=== PATIENT | male | born 1955 | race Caucasian/White ===

== ENCOUNTER 2019-12-08 07:06 | Outpatient (CLI) | payer OTHER, SELFPAY ==
--- NOTE | 2019-12-08 07:15 | USCV_ITS ---
AdelsoAidan amin Age: 64 Gender: M : 1955 Exam Date: 12/08/2019 07:21 Ordering Phys: Akua Shelby Technologist: Echo Mujica Exam Location: [facility] Indication: AAA HISTORY: AAA seen on xray Diameter (cm) AP x Transverse x Length Velocity (cm/s) Waveform Prox Aorta: 2.30 x 3.06 x 64.50 Mid Aorta: 2.55 x 3.01 x 52.90 Distal Aorta: 1.90 x 2.21 x 55.40 Right Iliac Prox: 1.17 x 1.23 x 79.30 Left Iliac Prox: 1.70 x 1.49 x 38.80 Stent Prox Landing x x Aneurysmal Sac Max x x Lt Lat Sac Dim Rt Lat Sac Dim Stent Dist Landing x x Right Iliac Stent x x Left Iliac Stent x x Right Renal Art Left Renal Art FINDINGS: Comparison: none available. Ectatic abdominal aorta with evidence of atherosclerotic plaque noted. Mild aneurysmal dilatation of the infrarenal aorta, maximum diameter of 3.0 cm. There is evidence of atherosclerotic plaque no significan stenosis in the right common iliac artery. There is evidence of atherosclerotic plaque no significan stenosis in the left common iliac artery. CONCLUSIONS Mimimal AAA at 3.[address] Lacey Najera DO (Electronically Signed) Final Date: 09 December 2019 08:43 S
== END 2019-12-08 07:07 | disposition home or self-care (01) ==
LOC: US 07:08
PROVIDERS: Visit Provider Nurse Practitioner
DX: I71.4 Abdominal aortic aneurysm, without rupture (principal)
CPT/HCPCS: 93978

== ENCOUNTER 2021-11-07 13:12 | Inpatient (IN) | payer OTHER, MEDICARE, SELFPAY ==
[2021-11-07] VITALS (45 sets, daily range): BP systolic 109–145; BP diastolic 64–87; PULSE 65–92; RESP 13–25; TEMP 36.6–36.9; O2SAT 93–100; BMI 24.3
--- NOTE | 2021-11-07 13:17 | CT_ITS ---
WS: [id number] CT CERVICAL TRAUMA TECHNIQUE: Noncontrast CT of the cervical spine with coronal and sagittal reformatted images. CLINICAL INFORMATION: trauma COMPARISON: None. DLP: 628.[address] scans at [facility] use at least one of these dose optimization techniques: automated e xposure control; mA and/or kV adjustment per patient size (includes targeted exams where dose is matc hed to clinical indication); or iterative reconstruction. FINDINGS: Straightening of the normal cervical lordosis. Moderate spondylitic changes. Disc osteophyte complexe s worse at C4-C5 C5-C6 and C6-C7. Anterior hypertrophic changes. Mild central canal stenosis C4-C6 du e to disc osteophyte complexes. Normal craniocervical junction. Normal C1-C2 articulation. Dens is no rmal in appearance. Normal occipital condyles. No high-grade spinal canal narrowing. Normal C1 ring. No evidence of acute fracture or dislocation. Normal prevertebral soft tissues. Mastoids air cells are well aerated. CT/CT cervical spin wo con* [id number] IMPRESSION: No evidence of acute fracture or dislocation.
--- NOTE | 2021-11-07 13:17 | CT_ITS ---
WS: [id number] CT CHEST, ABDOMEN, AND PELVIS TECHNIQUE: Contrast-enhanced CT of the chest, abdomen, and pelvis with coronal and sagittal reformatt ed images. CLINICAL INFORMATION: trauma COMPARISON: None. DLP: 1331.[address] scans at [facility] use at least one of these dose optimization techniques: automated e xposure control; mA and/or kV adjustment per patient size (includes targeted exams where dose is matc hed to clinical indication); or iterative reconstruction. CT CHEST: Small RIGHT pleural effusion with pulmonary contusion. Adjacent slightly displaced and comminuted imp inging rib fractures. This involves the 5th 6th 7th 8th 9th ribs laterally. No visualized left-sided rib fractures. Subcutaneous emphysema RIGHT lateral chest wall. No pneumothorax. Additional fractures at the costovertebral junction involving the 7th, 8th, 9th, 10th ribs. Spiculated lesion RIGHT upper lobe posteriorly extending to the pleura suspicious for neoplasm measur ing 11 x 12 mm. Recommend pulmonary consultation and further evaluation with PET/CT. Calcified granul erika LEFT upper lobe. LEFT basilar atelectasis. Normal caliber thoracic aorta. Proximal main pulmonary arteries are normal. No evidence of mediastinal hematoma. CT ABDOMEN AND PELVIS: Normal liver. No evidence of pancreatic laceration. Small enhancing lesion in the dome of the liver l ikely cavernous hemangioma. Normal portal vein and splenic vein. Normal spleen. Normal GE junction. A drenal glands are normal. Normal renal parenchymal enhancement. No hydronephrosis. Normal gallbladder . Normal celiac and SMA. Slightly ectatic distal abdominal aorta measuring 2.2 x 2.5 CCM. Bilateral THAs degrade images in the pelvis. Urine distended bladder. Fluid-filled small bowel. No ev idence of solid organ injury in the abdomen or pelvis. No free fluid in the pelvis. No acute appearin g compression fractures of the lumbar spine. CT/CT chest abd pel w con* IMPRESSION: 1. Multiple RIGHT rib fractures with impingement on the RIGHT lung with pulmon morenita contusion. Small RIGHT pleural effusion. No pneumothorax. Rib fractures moody cribed above. 2. No evidence of solid organ injury in the abdomen or pelvis. 3. Spiculated lesion in the RIGHT upper lobe posteriorly suspicious for neopla sm measuring 11 x 12 mm. Recommend pulmonary consult and further evaluation wit h PET/CT. Notified Giancarlo Coon DO at 11/07/2021 2:36 PM.
--- NOTE | 2021-11-07 13:18 | XRR_ITS ---
PROCEDURE INFORMATION: Exam: XR Right Humerus Exam date and time: 11/07/2021 1:18 PM Age: 66 years old Clinical indication: Injury or trauma; Other: Tree fell on patient; Blunt trauma (contusions or hematomas); Arm, upper; Bilateral TECHNIQUE: Imaging protocol: XR Right humerus. Views: 2 or more views. COMPARISON: CR XR chest 1V portable [id number] 11/07/2021 1:28 PM FINDINGS: Bones/joints: Normal. Soft tissues: Normal. XR/[place] [id number] IMPRESSION: No acute findings.
--- NOTE | 2021-11-07 13:18 | XRR_ITS ---
PROCEDURE INFORMATION: Exam: XR Left Humerus Exam date and time: 11/07/2021 1:18 PM Age: 66 years old Clinical indication: Injury or trauma; Other: Tree fell on patient; Blunt trauma (contusions or hematomas); Arm, upper; Bilateral TECHNIQUE: Imaging protocol: XR Left humerus. Views: 2 or more views. COMPARISON: CR XR chest 1V portable [id number] 11/07/2021 1:28 PM FINDINGS: Bones/joints: Negative for acute bony abnormality Soft tissues: Normal. XR/[place] [id number] IMPRESSION: No acute findings.
--- NOTE | 2021-11-07 13:18 | CT_ITS ---
WS: [id number] CT HEAD TECHNIQUE: Noncontrast CT of the head obtained from the skullbase to the vertex. CLINICAL INFORMATION: trauma COMPARISON: None. DLP: 928.[address] scans at [facility] use at least one of these dose optimization techniques: automated e xposure control; mA and/or kV adjustment per patient size (includes targeted exams where dose is matc hed to clinical indication); or iterative reconstruction. FINDINGS: No evidence of intracranial hemorrhage or mass effect. Ventricular system and basal cisterns are garcia nt. Mild small vessel changes with mild parenchymal volume loss. Intracranial vascular calcification. No extra-axial fluid collections. No evidence of mass or mass effect. Normal maya-white differentiat ion. Paranasal sinuses and mastoid air cells are well aerated. .Normal visualized soft tissues. CT/CT head wo con* [id number] IMPRESSION: 1. No evidence of intracranial hemorrhage or mass effect. 2. Mild small vessel changes. Mild parenchymal volume loss. 3. No acute intracranial findings.
--- NOTE | 2021-11-07 13:19 | ECG_ITS ---
[facility] Test Date: 2021-11-07 Pat Name: Aidan Darden Department: Room: Gender: Male Relationship Associate: : 1955 Requested By: Giancarlo Ching Order Number: [id number] Pilar MD: Kathie Cobos M.D. Measurements Intervals [place] Rate: 69 P: 69 NV: 186 QRS: 32 QRSD: 111 T: 63 QT: 385 QTc: 415 Interpretive Statements SINUS RHYTHM WITH MARKED SINUS ARRHYTHMIA INCOMPLETE RIGHT BUNDLE BRANCH BLOCK [90+ ms QRS DURATION, TERMINAL R IN V1/V2, 40+ ms S IN I/aVL/V4/V5/V6] No previous ECG available for comparison Electronically Signed On 11-08-2021 5:37:23 [employer] by Kathie Cobos M.D. [id number]
--- NOTE | 2021-11-07 13:19 | XRR_ITS ---
PROCEDURE INFORMATION: Exam: XR Chest Exam date and time: 11/07/2021 1:19 PM Age: 66 years old Clinical indication: Cough and dyspnea; Additional info: Dyspnea/cough TECHNIQUE: Imaging protocol: XR of the chest. Views: 1 view. COMPARISON: No relevant prior studies available. FINDINGS: Lungs: Unremarkable. No consolidation. Pleural spaces: Unremarkable. No pleural effusion. No pneumothorax. Heart/Mediastinum: Unremarkable. No cardiomegaly. Bones/joints: There is healing fractures present in the right 5th and 6 posterior rib XR/XR chest 1V portable [id number] IMPRESSION: 1. No acute cardiac or pulmonary disease. 2. Healing fractures right 5th and 6th rib
--- NOTE | 2021-11-07 13:20 | ED_ITS ---
HPI - Trauma General: Chief Complaint: Trauma Stated Complaint: TRAUMA, TREE FELL ON PT Time Seen by Provider: 11/07/21 13:13 Source: patient Mode of arrival: EMS Limitations: no limitations History of Present Illness: 66-year-old male presents emergency room after trauma while cutting down a tree. He cut a large limb off of the tree as it came down and pinned him against the tree was able to get himself out he has abrasions bilaterally on the lateral aspects of his arms and some abrasion on the right side of the chest he has some discomfort with breathing but is not been hypoxic he did not strike his head he did not lose consciousness. MD complaint: injury Onset (ago): minute(s) Loss of Consciousness: no Location: chest Associated symptoms: Reports back pain and chest pain; Denies Unable to assess gait, abdominal pain, anorexia, chills, confusion, cough, dental pain, diaphoresis, difficulty breathing, dizziness, epistaxis, fever(s), headache(s), nausea, seizures, short of breath, syncope, visual disturbances, vomiting or weakness Review of Systems Const: Denies: fever(s), chills or diaphoresis ENMT: Denies: dental pain or epistaxis Card: Reports: chest pain; Denies: syncope Resp: Denies: dyspnea, productive cough or non-productive cough GI: Denies: abdominal pain, nausea or vomiting : Denies: flank pain, dysuria, urinary frequency or urinary urgency Musc: Reports: back pain Skin/Breast: Denies: rash or pruritus Neuro: Denies: headache(s), dizziness or confusion PFS ED PFSH: Medical History No significant past medical history Surgical History No significant past surgical history Physical Exam Const: GENERAL APPEARANCE: cooperative and comfortable ORIENTATION/CONSCIOUSNESS: Yes awake, Yes oriented to person, Yes oriented to place and Yes oriented to time HENMT: COMMON NORMALS: normocephalic, atraumatic, hearing grossly normal bilaterally, external ears normal, EAC's normal, TM's normal bilaterally, Normal nasal mucous membranes and turbinates present, moist oral mucous membranes and oropharynx normal HEAD & SCALP: normocephalic and atraumatic NOSE: Normal nasal mucous membranes and turbinates present EXTERNAL EAR: Yes external ears normal EXTERNAL AUDITORY CANAL: EAC's normal TYMPANIC MEMBRANE: TM's normal bilaterally Eye: COMMON NORMALS: Equal, round and reactive pupils present, EOMs intact bilaterally, conjunctivae normal and no scleral icterus CONJUNCTIVA: Yes conjunctivae normal PUPIL: Yes Equal, round and reactive pupils present Neck/C-Spine: COMMON NORMALS: full ROM, no lymphadenopathy, supple and no JVD Lymph: LYMPHATIC: no lymphadenopathy noted and no lymphedema noted Chest: OTHER: Pain with palpation of the right chest wall Resp: COMMON NORMALS: normal respiratory effort, No retractions, No use of accessory muscles and clear to auscultation bilaterally AUSCULTATION: clear to auscultation bilaterally Cardio: COMMON NORMALS: no JVD, regular rate, regular rhythm and No murmurs present (Cardio) RATE: regular rate RHYTHM: regular rhythm GI: COMMON NORMALS: Soft to palpation and No hepatosplenomegaly present AUSCULTATION: Yes normoactive bowel sounds PALPATION: Yes Soft to palpation, No Tenderness to palpation present (GI), No Guarding due to palpation present (GI) and Yes No hepatosplenomegaly present Extremity: COMMON NORMALS: normal to inspection, capillary refill normal, no clubbing, cyanosis or edema, no calf tenderness and no pedal edema Neuro: SENSORIUM/ORIENTATION: Yes oriented to person, Yes oriented to place and Yes oriented to time GAIT: No Unable to assess gait Skin: OTHER: Skin tears bilateral and lateral aspects of the arms. No full-thickness laceration no active bleeding Course Vital Signs: Vital signs: Vital Signs Temperature 97.5 F L 11/09/21 11:00 Pulse Rate 68 11/09/21 11:00 Respiratory Rate 18 11/09/21 12:01 Blood Pressure 138/77 11/09/21 11:00 Pulse Oximetry 92 11/09/21 11:00 MDM - Trauma Medical Decision Making Patient has multiple rib fractures but no pneumothorax small hemothorax there is some subcutaneous air. No other injuries found on imaging I discussed Dr. Ardon he is willing to observe the patient we will place him in the ICU anesthesia was consulted for an epidural to really help relieve pain. Discussed results with the patient orders written Medical Records I reviewed the patient's medical records. Lab Data I reviewed the patient's lab results. : 11/08/21 04:07 11/08/21 04:07 Radiology Impressions Cervical Spine CT 11/07/21 13:17 IMPRESSION: No evidence of acute fracture or dislocation. Chest/Abdomen/Pelvis CT 11/07/21 13:17 IMPRESSION: 1. Multiple RIGHT rib fractures with impingement on the RIGHT lung with pulmonary contusion. Small RIGHT pleural effusion. No pneumothorax. Rib fractures described above. 2. No evidence of solid organ injury in the abdomen or pelvis. 3. Spiculated lesion in the RIGHT upper lobe posteriorly suspicious for neoplasm measuring 11 x 12 mm. Recommend pulmonary consult and further evaluation with PET/CT. Notified Giancarlo Coon DO at 11/07/2021 2:[address] 11/07/21 13:18 IMPRESSION: 1. No evidence of intracranial hemorrhage or mass effect. 2. Mild small vessel changes. Mild parenchymal volume loss. 3. No acute intracranial findings. Humerus X-Ray 11/07/21 13:18 IMPRESSION: No acute findings. Hip/Pelvis X-Ray 11/07/21 13:36 IMPRESSION: 1. Metallic left hip arthroplasty in good position. 2. Otherwise No acute findings. Chest X-Ray 11/09/21 06:00 Impression: 1. Negative for active cardiopulmonary disease. 2. No change in right rib fractures. Laboratory Results WBC 5.4 10^3/uL (4.0-10.0) 11/07/21 13:00 RBC 4.23 10^6/uL (4.1-5.3) 11/07/21 13:00 Hgb 12.9 g/dL (11.7-16.6) 11/07/21 13:00 Hct 40.4 % (42.0-52.0) L 11/07/21 13:00 MCV 95.5 fl (80-94) H 11/07/21 13:00 MCH 30.5 pg (28.0-34.0) 11/07/21 13:00 MCHC 31.9 g/dL (30.0-36.0) 11/07/21 13:00 RDW 13.9 % (12.1-15.1) 11/07/21 13:00 Plt Count 254 10^3/cmm (130-400) 11/07/21 13:00 MPV 11.2 fL (7.4-10.4) H 11/07/21 13:00 Neut % (Auto) 57.0 % 11/07/21 13:00 Lymph % (Auto) 29.3 % 11/07/21 13:00 Logan % (Auto) 8.1 % 11/07/21 13:00 Eos % (Auto) 0.6 % 11/07/21 13:00 Baso % (Auto) 1.1 % 11/07/21 13:00 Neut # (Auto) 3.08 10^3/uL (1.8-7.7) 11/07/21 13:00 Lymph # (Auto) 1.6 10^3/uL (0.8-4.8) 11/07/21 13:00 Logan # (Auto) 0.4 10^3/uL (0.2-0.9) 11/07/21 13:00 Eos # (Auto) 0.0 10^3/uL (0.0-0.8) 11/07/21 13:00 Baso # (Auto) 0.1 10^3/uL (0.0-0.1) 11/07/21 13:00 Nucleated RBC % (auto) 0.4 % 11/07/21 13:00 Nucleated RBCs # 0.0 /100WBC 11/07/21 13:00 Sodium 140 mmol/L (136-145) 11/07/21 13:00 Potassium 3.5 mmol/L (3.5-5.1) 11/07/21 13:00 Chloride 103 mmol/L (98-107) 11/07/21 13:00 Carbon Dioxide 25 mmol/L (22-29) 11/07/21 13:00 Anion Gap 15.5 (5-19) 11/07/21 13:00 BUN 9 mg/dL (8-23) 11/07/21 13:00 Creatinine 0.8 mg/dL (0.7-1.2) 11/07/21 13:00 GFR Calculation 97.0 mL/min (90-130) 11/07/21 13:00 Glucose 98 mg/dL (65-115) 11/07/21 13:00 Calculated Osmolality 289 mOsm/kg (285-295) 11/07/21 13:00 Calcium 8.7 mg/dL (8.5-10.5) 11/07/21 13:00 Total Bilirubin 0.7 mg/dL (0.15-1.2) 11/07/21 13:00 AST 30 U/L (0-40) 11/07/21 13:00 ALT 23 U/L (0-41) 11/07/21 13:00 Alkaline Phosphatase 72 IU/L (40-130) 11/07/21 13:00 Total Protein 6.3 g/dL (6.6-8.7) L 11/07/21 13:00 Albumin 4.1 g/dL (3.5-5.2) 11/07/21 13:00 Globulin 2.2 g/dL (1.3-4.6) 11/07/21 13:00 Urine Color Straw (Yellow) 11/07/21 15:00 Urine Appearance Clear (CLEAR) 11/07/21 15:00 Urine pH 9 (5-7) H 11/07/21 15:00 Ur Specific [place] 1.015 (1.005-1.030) 11/07/21 15:00 Urine Protein Neg (Negative) 11/07/21 15:00 Urine Glucose (UA) Norm (Normal) 11/07/21 15:00 Urine Ketones Negative (Negative) 11/07/21 15:00 Urine Blood Neg (Negative) 11/07/21 15:00 Urine Nitrate Negative (Negative) 11/07/21 15:00 Urine Bilirubin Neg (Negative) 11/07/21 15:00 Prot Sulfosalicylic Acd Negative (Negative) 11/07/21 15:00 Urine Urobilinogen Norm mg/dL (Negative) 11/07/21 15:00 Ur Leukocyte Esterase Negative (Negative) 11/07/21 15:00 Urine Opiates Screen Negative ng/mL (Negative) 11/07/21 15:00 Ur Barbiturates Screen Negative ng/mL (Negative) 11/07/21 15:00 Ur Phencyclidine Scrn Negative ng/mL (Negative) 11/07/21 15:00 Ur Amphetamines Screen Negative ng/mL (Negative) 11/07/21 15:00 U Benzodiazepines Scrn Negative ng/mL (Negative) 11/07/21 15:00 Urine Cocaine Screen Negative ng/mL (Negative) 11/07/21 15:00 U Marijuana (THC) Screen Negative ng/mL (Negative) 11/07/21 15:00 Discharge Plan Discharge Patient Disposition: Admitted As Inpatient Admit Provider: Vamsi Ardon Clinical Impression: Multiple rib fractures involving four or more ribs Condition: Stable Coding Level of Care Code ED [employer] 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
[2021-11-07 13:31] LABS: Basophils # 0.1 10^3/uL (0.0-0.1); Basophils % 1.1 %; Eosinophils % 0.6 %; Hematocrit 40.4 % (42.0-52.0); Hemoglobin 12.9 g/dL (11.7-16.6); Lymphocytes # 1.6 10^3/uL (0.8-4.8); Lymphocytes % 29.3 %; Mean Corpuscular HGB Conc 31.9 g/dL (30.0-36.0); Mean Corpuscular Hemoglobin 30.5 pg (28.0-34.0); Mean Corpuscular Volume 95.5 fl (80-94); Mean Platelet Volume 11.2 fL (7.4-10.4); Monocytes # 0.4 10^3/uL (0.2-0.9); Monocytes % 8.1 %; Neutrophils # 3.08 10^3/uL (1.8-7.7); Nucleated Red Blood Cells % 0.4 %; Platelet Count 254 10^3/cmm (130-400); Red Blood Count 4.23 10^6/uL (4.1-5.3); Red Cell Distribution Width 13.9 % (12.1-15.1); White Blood Count 5.4 10^3/uL (4.0-10.0)
--- NOTE | 2021-11-07 13:36 | XRR_ITS ---
PROCEDURE INFORMATION: Exam: XR Left Hip Exam date and time: 11/07/2021 1:36 PM Age: 66 years old Clinical indication: Injury or trauma; Other: Tree fell on patient; Blunt trauma (contusions or hematomas); Left; Prior surgery; Surgery type: Hip replacement TECHNIQUE: Imaging protocol: XR Left hip. Views: 2 or 3 views hip with pelvis when performed. COMPARISON: No relevant prior studies available. FINDINGS: Bones/joints: The left metallic left hip arthroplasty is present in good position. No acute fracture. Soft tissues: Unremarkable. XR/XR hip LT 2-3V wo/w pel* [id number] IMPRESSION: 1. Metallic left hip arthroplasty in good position. 2. Otherwise No acute findings.
[2021-11-07 13:55] LABS: Alanine Aminotransferase 23 U/L (0-41); Albumin Level 4.1 g/dL (3.5-5.2); Alkaline Phosphatase 72 IU/L (40-130); Aspartate Amino Transferase 30 U/L (0-40); Blood Urea Nitrogen 9 mg/dL (8-23); Calcium 8.7 mg/dL (8.5-10.5); Carbon Dioxide 25 mmol/L (22-29); Chloride 103 mmol/L (98-107); Creatinine Clr Calc Pharmacy 94.2151; Globulin 2.2 g/dL (1.3-4.6); Glucose 98 mg/dL (65-115); Osmolality Calculated 289 mOsm/kg (285-295); Sodium 140 mmol/L (136-145); Total Bilirubin 0.7 mg/dL (0.15-1.2); Total Protein 6.3 g/dL (6.6-8.7)
[2021-11-07 13:59] LABS: Anion Gap 15.5 (5-19); Potassium 3.5 mmol/L (3.5-5.1)
[2021-11-07] MEDS: iohexol 300 mg/mL 100 mL Btl IV (14:16)
[2021-11-07 15:08] LABS: Add Urine Microscopic? NO; Charge for UA Resulting for Rev
[2021-11-07 15:11] LABS: Bilirubin Urine Neg (Negative); Blood Urine Neg (Negative); Glucose Urine UA Norm (Normal); Ketones Urine Negative (Negative); Leukocyte Esterase Urine Negative (Negative); Nitrate Urine Negative (Negative); Protein Urine Neg (Negative); Specific Gravity, Urine 1.015 (1.005-1.030); Sulfosalicylic Acid Urine Negative (Negative); Urine Appearance Clear (CLEAR); Urine Color Straw (Yellow); Urobilinogen Urine Norm (Negative); pH Urine 9 (5-7)
[2021-11-07 15:19] LABS: Amphetamines Screen Urine Negative (Negative); Barbiturates Screen Urine Negative (Negative); Benzodiazepines Screen Urine Negative (Negative); Cocaine Screen Urine Negative (Negative); Opiate Screen Urine Negative (Negative); PCP Screen Urine Negative (Negative); THC Screen Urine Negative (Negative)
--- NOTE | 2021-11-07 16:23 | P.HP_ITS ---
Providers/Chief Complaint Admitting Physician: Dr. Ardon Chief Complaint: TRAUMA, TREE FELL ON PT History of Present Illness Aidan Darden is a 66 year old male who presented to the emergency department earlier this afternoon after being struck by a tree during trimming. Apparently, a large branch from a [place] pair broke and struck Mr. Darden in the chest and threw him into a large limb that was on the ground. Immediately noted substantial shortness of breath, difficulty breathing, and pain on the right side. He simply presented to the emergency department where chest x-ray reveals posterior rib fractures on the right from ribs 5 through 9 and mild thickening of the pleura on that side. There is no donnell pneumothorax. There is an incidental finding of a 5 mm spiculated lesion in the apex of the right upper lobe which is highly suspicious radiographically for malignancy. Mr. Darden has had stable vital signs while the emergency department. I have reviewed the CT scan which was performed and I have conferred with my colleague, Dr. Owens by phone. He is in moderate discomfort as expected. I have conferred with my colleague from anesthesia, Dr. Sanchez. She has been gracious enough to place a thoracic epidural catheter to help with acute pain control while we continue aggressive pulmonary toilet in an attempt to prevent secondary complications from multiple traumatic rib fractures on the right side. Given the acute nature of the injury and the fact that he was thrown several feet when being struck by the tree, we are going to place him in the ICU and empirically overnight for close observation. Review of Systems Const: Denies: fever(s), chills, change in appetite, change in weight, fatigue or night sweats Eyes: Denies: change in vision or blurry vision ENMT: Denies: odynophagia or hoarseness Card: Denies: chest pain, palpitations, irregular heart rhythm or edema Resp: Reports: dyspnea; Denies: productive cough or hemoptysis GI: Denies: abdominal pain, nausea, vomiting, dysphagia, heartburn or change in bowel habits : Denies: difficulty urinating, dysuria, urinary frequency, urinary urgency or urinary hesitancy Musc: Reports: back pain; Denies: extremity pain or extremity swelling Skin/Breast: Denies: rash Neuro: Denies: headache(s), numbness in extremities, weakness in extremities or sensory changes Psych: Denies: anxiety, depression or change in appetite Endo: Denies: polyuria, polydipsia or cold intolerance John/Lymph: Denies: easy bruising, easy bleeding, petechiae or enlarged lymph nodes Medications/Allergies Home Medications Medication Instructions Recorded Confirmed Last Taken Type No Known Home Medications 11/07/21 11/07/21 Unknown History Allergies Allergy/AdvReac Type Severity Reaction Status Date / Time No Known Allergies Allergy Unverified 11/07/21 15:49 PFSH Acute PFSH: Medical History No significant past medical history Surgical History No significant past surgical history Vitals/I&O/Wt Last Vital Signs Temp 98.3 F 11/07/21 13:20 Pulse 71 11/07/21 16:10 Resp 25 H 11/07/21 16:10 BP 133/75 11/07/21 16:10 Pulse Ox 93 11/07/21 16:10 Weight last 48 hrs Weight 165 lb Physical Exam Const: COMMON NORMALS: no acute distress, patient oriented x3, healthy appearing and well nourished GENERAL APPEARANCE: cooperative and well developed; not comfortable ORIENTATION/CONSCIOUSNESS: Yes awake, Yes oriented to person, Yes oriented to place and Yes oriented to time HENMT: COMMON NORMALS: normocephalic, atraumatic, hearing grossly normal bilaterally and external ears normal FACE & SINUS: normal facial exam NOSE: Normal external nose present GENERAL EAR: hearing grossly impaired Eye: COMMON NORMALS: Equal, round and reactive pupils present, EOMs intact bilaterally, conjunctivae normal and no scleral icterus GENERAL EYE: appearance normal, both eyes and all related structures PUPIL: Yes Equal, round and reactive pupils present Neck/C-Spine: COMMON NORMALS: full ROM, no lymphadenopathy, supple and No carotid bruits GENERAL: Yes normal visual inspection, Yes trachea midline, No anterior neck swelling and No lymphadenopathy CERVICAL SPINE: Yes cervical ROM normal Lymph: LYMPHATIC: no lymphadenopathy noted Chest: COMMONS NORMALS: negative for normal inspection of the chest (Contusion and superficial abrasions) CHEST: Yes localized rib tenderness with anteroposterior compression (Right upper and mid lateral side ) and No Sternal flail present Resp: COMMON NORMALS: normal respiratory effort, No use of accessory muscles and clear to auscultation bilaterally EFFORT & INSPECTION: Yes able to speak in complete sentences, Yes symmetric chest movement and Yes other (No crepitance) AUSCULTATION: clear to auscultation bilaterally, normal I/E ratio, no crackles and breath sounds present Cardio: COMMON NORMALS: regular rate, regular rhythm, S1 normal heart sound present, No murmurs present (Cardio) and No rub (Cardio) PALPATION: normal PMI RATE: regular rate RHYTHM: regular rhythm HEART SOUNDS: S1 normal heart sound present, no murmurs and no rubs BRUITS: no carotid bruits PERIPHERAL PULSES: radial pulses present positive bilateral 2+ GI: COMMON NORMALS: Normal to inspection, nondistended, normoactive bowel sounds present : COMMON NORMALS: Yes no CVA tenderness Back/Pelvis: COMMON NORMALS: no CVA tenderness Extremity: COMMON NORMALS: no clubbing, cyanosis or edema Neuro: COMMON NORMALS: patient oriented x3, moves all extremities, no focal motor deficits and no sensory deficits noted Psych: COMMON NORMALS: mental status grossly normal Skin: GENERAL SKIN EXAM: rashes and/or lesions noted (Abrasions to upper extremities and chest wall) Data : 11/07/21 13:00 11/07/21 13:00 A&P Assessment and plan (1) Multiple rib fractures involving four or more ribs: Multiple right-sided traumatic rib fractures after being struck by a tree. Rib involvement includes posterior ribs 5 through 9. No pneumothorax or substantial pleural effusion. Plan: We will admit for intensive care observation given the traumatic nature of the fractures and the mechanism. Thoracic epidural catheter has been placed by Dr. Sanchez from our anesthesia department to assist with pain management. We will augment with narcotic analgesia as needed. Aggressive pulmonary toilet. A.m. laboratory data and chest x-ray. If uneventful night, will plan for transfer to [facility] tomorrow. Status: Acute Attestations Medical Necessity Statement*: Multiple traumatic rib fractures on the right side Coding Level of Care Code New Pt Acute Diet Therapist for Chg Fwd Patient Type New History Expanded Problem Focused Exam Detailed Medical Decision Making Moderate Complexity Diagnoses Multiple rib fractures involving four or more ribs S22.49XA Time Spent (min) 40
--- NOTE | 2021-11-07 16:27 | ANES.PREANE2 ---
Pre-Anesthetic Assessment Height/Weight: Height 1.75 m Weight 74.843 kg Temp Pulse Resp BP Pulse Ox 98.3 F 71 25 H 133/75 93 11/07/21 13:20 11/07/21 16:10 11/07/21 16:10 11/07/21 16:10 11/07/21 16:10 epidural Familial anesthetic complications: noen Last intake: > 8 hrs Social No alcohol and No tobacco Exam alert, oriented x 3 and regular rate & rhythm Pulmonary RIb fractures (multiple) Anesthetic Plan ASA status: 2 Anesthesia: Regional (specify below) Risk of > 500 ml blood loss (7ml/kg in children): No Medications/Allergies Home Medications Medication Instructions Recorded Confirmed Last Taken Type No Known Home Medications 11/07/21 11/07/21 Unknown History Allergies Allergy/AdvReac Type Severity Reaction Status Date / Time No Known Allergies Allergy Unverified 11/07/21 15:49 [facility] Anesthesia Medical History No significant past medical history Surgical History No significant past surgical history Data Anesthesia : 11/07/21 13:00 11/07/21 13:00 Short CBC 11/07/21 Range/Units 13:00 WBC 5.4 (4.0-10.0) 10^3/uL Hgb 12.9 (11.7-16.6) g/dL Hct 40.4 L (42.0-52.0) % MCV 95.5 H (80-94) fl Plt Count 254 (130-400) 10^3/cmm Neut % (Auto) 57.0 % Neut # (Auto) 3.08 (1.8-7.7) 10^3/uL BMP 11/07/21 13:00 Sodium 140 Potassium 3.5 Chloride 103 Carbon Dioxide 25 BUN 9 Creatinine 0.8 Glucose 98 Calcium 8.7 Liver Function 11/07/21 Range/Units 13:00 Total Bilirubin 0.7 (0.15-1.2) mg/dL AST 30 (0-40) U/L ALT 23 (0-41) U/L Alkaline Phosphatase 72 (40-130) IU/L Albumin 4.1 (3.5-5.2) g/dL Urine 11/07/21 Range/Units 15:00 Urine Color Straw (Yellow) Urine Appearance Clear (CLEAR) Urine pH 9 H (5-7) Ur Specific [place] 1.015 (1.005-1.030) Urine Protein Neg (Negative) Urine Glucose (UA) Norm (Normal) Urine Ketones Negative (Negative) Urine Nitrate Negative (Negative) Urine Bilirubin Neg (Negative) Ur Leukocyte Esterase Negative (Negative) Cardiac Studies: No Data to Display
--- NOTE | 2021-11-07 16:28 | P.ANES_ITS ---
Anesthesia Procedures Procedure/Date: 11/07/21 Epidural: Time Out Performed: Yes Consents Signed: Procedure Consent Consent: requested by attending/covering physician (Duglas), from patient and patient agrees to proceed Thoracic Level: other (T6-7) Epidural position: sitting Epidural procedure: sterile prep of area, 1% lidocaine to numb the ar ea, 18 g needle, negative for paresthesia passed, neg for paresthesia, test dose given, 1.5% xylocaine 1:200k epi (5 cc), no systemic response and L.U.D. no apparent complications Additional Comments: CONNIE at 7 cm, threaded to 13 cm
[2021-11-07] MEDS: pantoprazole DR 40 mg Tablet PO (17:03)
--- NOTE | 2021-11-07 19:16 | PC.NURSE ---
Admitted to ICU room 4 at 1800. Patient resting in bed with at bedside. Chief complaint is of pain 7/10 of right side. Relieved to a 3/10 with medication.
--- NOTE | 2021-11-07 19:53 | PC.NURSE ---
Pt has bilateral arm abrasions wrapped in kerlix. Dressings dry and intact. IS and flutter valve at bedside. Pt compliant with using each 10 times per hour. Pt does not feel that he needs additional doses other than continuous dose from RIGHT OF WAY APPRAISER.
[2021-11-08] VITALS (195 sets, daily range): BP systolic 102–152; BP diastolic 61–95; PULSE 59–115; RESP 10–28; TEMP 36.8–37.1; O2SAT 90–97
[2021-11-08 04:35] LABS: Basophils % 0.3 %; Eosinophils % 0.2 %; Hematocrit 39.6 % (42.0-52.0); Hemoglobin 12.8 g/dL (11.7-16.6); Lymphocytes # 0.4 10^3/uL (0.8-4.8); Lymphocytes % 6.2 %; Mean Corpuscular HGB Conc 32.3 g/dL (30.0-36.0); Mean Corpuscular Volume 95.9 fl (80-94); Mean Platelet Volume 10.9 fL (7.4-10.4); Monocytes # 0.4 10^3/uL (0.2-0.9); Monocytes % 6.5 %; Neutrophils % 86.3 %; Nucleated Red Blood Cells % 0 %; Platelet Count 159 10^3/cmm (130-400); Red Blood Count 4.13 10^6/uL (4.1-5.3); Red Cell Distribution Width 13.9 % (12.1-15.1); White Blood Count 6.6 10^3/uL (4.0-10.0)
[2021-11-08 04:49] LABS: Anion Gap 15.1 (5-19); Blood Urea Nitrogen 11 mg/dL (8-23); Carbon Dioxide 23 mmol/L (22-29); Chloride 100 mmol/L (98-107); Glomerular Filtration Rate 135.2 mL/min (90-130); Glucose 122 mg/dL (65-115); Osmolality Calculated 279 mOsm/kg (285-295); Potassium 4.1 mmol/L (3.5-5.1); Sodium 134 mmol/L (136-145)
[2021-11-08 04:52] LABS: Creatinine Clr Calc Pharmacy 94.2151
--- NOTE | 2021-11-08 05:23 | PC.NURSE ---
No acute changes overnight. patient rested well.
--- NOTE | 2021-11-08 06:00 | XRR_ITS ---
PROCEDURE INFORMATION: Exam: XR Chest Exam date and time: 11/08/2021 6:00 AM Age: 66 years old Clinical indication: Condition or disease; Other: Multiple rib fractures; Patient HX: Multiple RT side rib fractures; Additional info: Traumatic rib fractures TECHNIQUE: Imaging protocol: XR of the chest. Views: 1 view. COMPARISON: CT chest abd pel w con* 11/07/2021 2:06 PM FINDINGS: Lungs: Spiculated nodule noted at the right lung apex seen on recent chest CT is not well visualized on radiographs. Patchy right basilar opacities. Pleural spaces: No large pneumothorax. Heart/Mediastinum: No cardiomegaly. Bones/joints: Multiple right-sided rib fractures are again noted. XR/XR chest 1V portable [id number] IMPRESSION: 1. Multiple right-sided rib fractures are again noted. No large pneumothorax. Patchy right basilar atelectasis. 2. Spiculated nodule noted at the right lung apex seen on recent chest CT is not well visualized on radiographs.
--- NOTE | 2021-11-08 06:33 | PM.PN ---
Subjective Subjective: Uneventful night. Voiding without difficulties with thoracic epidural catheter in place. Good analgesia. Pulmonary toilet continues. Pulling approximately 1500 cc on incentive spirometry. Chest x-ray does reveal some mild increase reticular pattern on the right though no donnell effusion, pneumothorax, or obvious pulmonary contusion. Laboratory data is unremarkable. H&H is stable. Vitals/I&O/Wt Last Vital Signs Temp 98.4 F 11/07/21 19:47 Pulse 67 11/08/21 06:00 Resp 16 11/08/21 06:00 BP 146/68 11/08/21 06:00 Pulse Ox 95 11/08/21 06:00 11/07/21 11/07/21 11/08/21 14:59 22:59 06:59 Intake Total 240 / 240 300 / 540 Output Total 450 / 450 Balance -210 / -210 300 / 90 Weight last 48 hrs Weight 165 lb Weight 165 lb Physical Exam Neck/C-Spine: COMMON NORMALS: no JVD Chest: COMMONS NORMALS: normal inspection of the chest and normal palpation of entire chest wall CHEST: Yes Symmetrical chest wall rise, No crepitus and Yes tenderness OTHER: Chest wall is stable. No crepitance. Resp: COMMON NORMALS: normal respiratory effort, No use of accessory muscles and clear to auscultation bilaterally AUSCULTATION: clear to auscultation bilaterally Cardio: COMMON NORMALS: no JVD, regular rate, regular rhythm, S1 normal heart sound present, No murmurs present (Cardio) and No rub (Cardio) RATE: regular rate RHYTHM: regular rhythm HEART SOUNDS: S1 normal heart sound present Data : 11/08/21 04:07 11/08/21 04:07 A&P Assessment and plan (1) Multiple rib fractures involving four or more ribs: Status post multiple right-sided rib fractures; 5 through 9. Good analgesia with current medication regimen including thoracic epidural catheter. Plan: I will transfer to [facility] and continue aggressive pulmonary toilet for another 24 hours with tentative plans for discharge tomorrow. We will obtain a chest x-ray in a.m. Status: Acute Attestations Medical Necessity Statement*: Multiple traumatic right side rib fractures. Coding Level of Care Code Acute Scientific Photographer for [facility] Jimmy Diagnoses Multiple rib fractures involving four or more ribs S22.49XA
--- NOTE | 2021-11-08 06:41 | PM.MISC ---
Miscellaneous Note Purpose of Documentation: Progress note Note: Patient states his pain is well controlled, hasn't pushed button. Still having pain though, so encouraged use of bolus button for pain. Epiduiral site checked. Dressing intact.
--- NOTE | 2021-11-08 10:37 | PC.CHAP ---
Pastoral Care Encounter/Spiritual Assessment Type of Contact [] Declined transport analyst visit [] Patient/Family/Request visit [] Outpatient visit [] Follow-up visit [] Physician referral [] Code/Alert [x] Routine visit [] Staff referral [] Actively dying [] Patient sleeping [] Family support [] [] Out of room [] Palliative care [] [] Receiving care in room [] Pre-surgical visit [] Trauma [] Long length of stay [x] ICU visit [x] Other: patient busy on phone... will revisit tomorrow Relational/Emotional Strength [] Patient feels connected with others/family/visitors/staff [] Distress [] Loneliness/isolation [] Abandonment Spirituality of Patient [] Person of Rachana [] Attends Taoist of their Rachana [] Believes in Prayer [] Reads Bible or Holiness materials [] There are Spiritual issues to be addressed Snagger Interventions [x] Prayer [] Active listening [] Non-anxious presence [] Spiritual/emotional support [] Crisis/trauma care [] Spiritual counseling [] Bereavement support [] Provided bereavement packet [] Provided Bible/devotional materials [] Provided toy/stuffed animal, coloring book to patient or family member [] Provided Communion [] Anointing/[place] [] Salvation [x] Completed spiritual assessment [] Other: Impact on Illness or Injury [] Angry [] Fearful [] Anxious [] Often cries [] Exhaustion [] Unable to work [] Unable to attend tenriism [] Unable to walk/stand [] Unable to read [] Unable to drive [] Unable to eat/drink [] Unable to sleep [] Unable to be with family [] Patient intubated [] Other: Summary Time spent with patient
[2021-11-08] MEDS: oxyCODONE-APAP 5-325 mg Tablet 1 TAB PO ×2 (16:53→23:44)
--- NOTE | 2021-11-08 16:56 | PM.MISC ---
Miscellaneous Note Purpose of Documentation: Vital signs have been stable throughout the day. Biggest complaint has been of left hip discomfort. He had a left hip arthroplasty 2 years ago. He did receive x-rays of his hip and pelvis during this admission and there were negative findings. No pulmonary complaints. He does have some right shoulder discomfort, which would be consistent with the high posterior rib fractures. Lungs are clear bilaterally. No crepitance. Pulling 2000 cc on incentive spirometer. Does complain of some constipation. Plan: Lactulose 30 g p.o. now Physical therapy consult for evaluation. Awaiting transfer to the [facility]. Chest x-ray in a.m.
[2021-11-08] MEDS: lactulose oral liq 20 gm/30 mL UDC 30 GM PO (17:39)
--- NOTE | 2021-11-08 18:21 | PC.NURSE ---
Patient transferred to 2nd floor room 266. Patient on commode with nurse in room. patient belongings at bedside and chart left with staff at nursing station.
--- NOTE | 2021-11-08 18:37 | PC.NURSE ---
Received report on patient at this time. Patient needed to go to the bathroom and was assisted to the bathroom at this time.
--- NOTE | 2021-11-08 19:19 | PC.NURSE ---
Report to Jenifer STEIN at this time.
[2021-11-09] VITALS (9 sets, daily range): BP systolic 103–150; BP diastolic 65–88; PULSE 59–71; RESP 16–18; TEMP 36.4–36.7; O2SAT 92–96
[2021-11-09] MEDS: oxyCODONE-APAP 5-325 mg Tablet 1 TAB PO ×3 (05:53→18:07)
--- NOTE | 2021-11-09 06:00 | XR_ITS ---
WS: [id number] Portable AP supine chest, 11/09/2021 Clinical Data: Day#2 pulmonary toilet/multiple rib fx. Comparison: Portable chest, 11/08/2021 Findings: No nodules, masses or effusions are seen. The heart is normal. The pulmonary vascularity is not increased. No pneumonia or pneumothorax is seen. The right fifth through eighth posterior latera l rib fractures remain the same. XR/XR chest 1V portable [id number] Impression: 1. Negative for active cardiopulmonary disease. 2. No change in right rib fractures.
--- NOTE | 2021-11-09 09:18 | PM.PN ---
Subjective Subjective: Hospital day #2. Has been transferred to the medical[facility]. Vital signs are stable. No respiratory complaints. Chest x-ray this morning revealed clear lung hopkins bilaterally with resolution of the mild reticular pattern on the right side. No effusion, pleural thickening, or infiltrates. Vitals/I&O/Wt Last Vital Signs Temp 97.5 F L 11/09/21 07:00 Pulse 60 11/09/21 07:00 Resp 18 11/09/21 07:00 BP 120/79 11/09/21 07:00 Pulse Ox 95 11/09/21 07:00 11/08/21 11/09/21 11/09/21 22:59 06:59 14:59 Intake Total 600 / 822 640 / 1462 Output Total 2450 / 2850 1400 / 4250 Balance -1850 / -2028 -760 / -2788 Weight last 48 hrs Weight 165 lb Weight 165 lb Physical Exam Chest: COMMONS NORMALS: normal inspection of the chest and normal palpation of entire chest wall OTHER: Only mild right chest wall tenderness. No crepitance. Resp: COMMON NORMALS: normal respiratory effort, No use of accessory muscles and clear to auscultation bilaterally AUSCULTATION: clear to auscultation bilaterally Cardio: COMMON NORMALS: regular rate, regular rhythm, No murmurs present (Cardio) and No rub (Cardio) RATE: regular rate RHYTHM: regular rhythm Extremity: COMMON NORMALS: no clubbing, cyanosis or edema NARRATIVE EXTREMITY EXAM: Right hip range of motion is improving. He has received physical therapy and is now ambulating with a walker. He would benefit from continued physical therapy in the acute phase. Data : 11/08/21 04:07 11/08/21 04:07 A&P Assessment and plan (1) Multiple rib fractures involving four or more ribs: Hospital day #2 with multiple right-sided posterior rib fractures. Thoracic epidural catheter has assisted in providing good relief with the use of respiratory rehabilitation. Plan: I have asked our anesthesia colleagues to discontinue his epidural catheter. Will continue pulmonary toilet and reassess this afternoon as to adequate oral analgesia with reassessment for possible discharge later this evening or tomorrow. Status: Acute Attestations Medical Necessity Statement*: Possible traumatic right-sided rib fractures. Currently receiving aggressive pulmonary toilet and physical therapy Coding Level of Care Code Acute [place] Supervisor for [facility] Fwd Diagnoses Multiple rib fractures involving four or more ribs S22.49XA
--- NOTE | 2021-11-09 09:38 | PM.MISC ---
Miscellaneous Note Purpose of Documentation: PRogress note Note: Epidural removed w/ tip intact per surgeon request
[2021-11-09] MEDS: TRAMadol 50 mg Tablet 100 MG PO ×2 (10:40→21:03)
[2021-11-09] MEDS: lactulose oral liq 20 gm/30 mL UDC PO (19:04)
[2021-11-10 00:45] VITALS: RESP 18; O2SAT 93
[2021-11-10] MEDS: oxyCODONE-APAP 5-325 mg Tablet 1 TAB PO ×2 (00:45→09:56)
[2021-11-10 03:00] VITALS: BP 125/76; PULSE 54; RESP 18; TEMP 36.5; O2SAT 95
[2021-11-10] MEDS: TRAMadol 50 mg Tablet 100 MG PO ×2 (04:38→13:09)
--- NOTE | 2021-11-10 05:34 | PM.PN ---
Subjective Subjective: Nurses report no concerns. Uneventful night. Vital signs stable. Afebrile. No pulmonary complaints. Right-sided chest discomfort appears to be under really good control with oral analgesia. Pulling 1500 cc on incentive spirometer. Vitals/I&O/Wt Last Vital Signs Temp 97.7 F 11/10/21 03:00 Pulse 54 L 11/10/21 03:00 Resp 18 11/10/21 03:00 BP 125/76 11/10/21 03:00 Pulse Ox 95 11/10/21 03:00 11/09/21 11/09/21 11/10/21 14:59 22:59 06:59 Intake Total 120 / 120 840 / 960 2000 / 2960 Output Total 400 / 400 1700 / 2100 650 / 2750 Balance -280 / -280 -860 / -1140 1350 / 210 Physical Exam Chest: COMMONS NORMALS: normal inspection of the chest OTHER: No crepitance. Moderate tenderness laterally and posteriorly on the right consistent with rib fractures. Resp: COMMON NORMALS: normal respiratory effort, No use of accessory muscles and clear to auscultation bilaterally AUSCULTATION: clear to auscultation bilaterally OTHER: 1500 cc on incentive spirometer. Cardio: COMMON NORMALS: regular rate, regular rhythm, S1 normal heart sound present and No murmurs present (Cardio) RATE: regular rate RHYTHM: regular rhythm HEART SOUNDS: S1 normal heart sound present Extremity: COMMON NORMALS: no clubbing, cyanosis or edema NARRATIVE EXTREMITY EXAM: Left hip discomfort is improving with physical therapy guidance. Data : 11/08/21 04:07 11/08/21 04:07 A&P Assessment and plan (1) Multiple rib fractures involving four or more ribs: Hospital day #3 status post multiple traumatic right-sided rib fractures. Plan: We will plan to discharge to home today with follow-up in my clinic in 1 week. Status: Acute Attestations Medical Necessity Statement*: Multiple traumatic right-sided rib fractures after fall. Has received aggressive pulmonary toilet and analgesia to include thoracic epidural catheter with good effect. Coding Level of Care Code Acute Associate Financial Advisor for [facility] Diagnoses Multiple rib fractures involving four or more ribs S22.49XA
--- NOTE | 2021-11-10 05:41 | P.DS_ITS ---
Discharge Providers Date of Admission: 11/07/21 16:22 Date of Discharge: November 10, 2021 Attending Provider at Admission: Vamsi Ardon MD Attending Provider at Discharge: Vamsi Ardon MD Diagnoses at Discharge Discharge Diagnosis (1) Multiple rib fractures involving four or more ribs: Status: Acute Reason for Visit Reason for Visit: TRAUMA, TREE FELL ON PT Hospital Course Hospital Course Mr. Darden is a pleasant 66-year-old gentleman who suffered multiple right-sided traumatic rib fractures while cutting down a tree. This resulted in posterior right rib 5 through 9 fractures. He was admitted for aggressive pulmonary toilet, careful observation for pulmonary complications, and adequate analgesia. He received a thoracic epidural catheter to assist with pain control and underwent aggressive pulmonary toilet. He also had left hip discomfort from the fall though x-rays were negative. He has had a prior left hip arthroplasty, so therefore received evaluation and treatment per our physical therapy department. He did have some mild reticular pattern on x-ray on his first hospital day immediately following the accident. With aggressive pulmonary toilet he was able to increase his incentive spirometry from approximate 500 cc to 1500 cc by the end of the second day. His range of motion of the left hip has improved with physical therapy and he is ambulating now with the use of a walker. He has made steady improvement and appears to have received maximal benefit from hospitalization. Right chest wall pain has been under good control after removal of the thoracic epidural catheter with the use of oral analgesia. He will be discharged home today with limited activities for the next 2 weeks. He will continue aggressive pulmonary toilet with incentive spirometry and Acapella. He will be scheduled to follow-up in my clinic in 1 week. He will have weight restrictions for his right upper extremity. At the time of discharge, he is in stable condition. Physical Exam Const: COMMON NORMALS: patient oriented x3 Chest: COMMONS NORMALS: normal inspection of the chest; negative for normal palpation of entire chest wall OTHER: Is tenderness to the right lateral and posterior wall, though clearly improved. No crepitance. Resp: COMMON NORMALS: normal respiratory effort, No use of accessory muscles and clear to auscultation bilaterally AUSCULTATION: clear to auscultation bilaterally Cardio: COMMON NORMALS: regular rate, regular rhythm, S1 normal heart sound present and No murmurs present (Cardio) RATE: regular rate RHYTHM: regular rhythm HEART SOUNDS: S1 normal heart sound present GI: COMMON NORMALS: Normal to inspection, nondistended, normoactive bowel sounds present Extremity: NARRATIVE EXTREMITY EXAM: Improving range of motion to left hip, though still with some discomfort. Neuro: COMMON NORMALS: patient oriented x3, no focal motor deficits and no sensory deficits noted Discharge Data Studies Completed and Pending Completed Studies During Hospitalization Category Date Time Status CT cervical spin wo con* [id number] Stat Cat Scan 11/07/21 13:[address] chest abdomen pelvis [CT chest abd pel w con*] Stat Cat Scan 11/07/21 13:[address] head wo con* [id number] Stat Cat Scan 11/07/21 13:18 Completed XR chest 1V portable [id number] Routine Exams 11/08/21 06:00 Completed XR chest 1V portable [id number] Routine Exams 11/09/21 06:00 Completed XR chest 1V portable [id number] Stat Exams 11/07/21 13:19 Completed XR hip LT 2-3V wo/w pel* [id number] Stat Exams 11/07/21 13:36 [place] [id number] Stat Exams 11/07/21 13:18 [place] [id number] Stat Exams 11/07/21 13:18 Completed Radiology Impressions Cervical Spine CT 11/07/21 13:17 IMPRESSION: No evidence of acute fracture or dislocation. Chest/Abdomen/Pelvis CT 11/07/21 13:17 IMPRESSION: 1. Multiple RIGHT rib fractures with impingement on the RIGHT lung with pulmonary contusion. Small RIGHT pleural effusion. No pneumothorax. Rib fractures described above. 2. No evidence of solid organ injury in the abdomen or pelvis. 3. Spiculated lesion in the RIGHT upper lobe posteriorly suspicious for neoplasm measuring 11 x 12 mm. Recommend pulmonary consult and further evaluation with PET/CT. Notified Giancarlo Coon DO at 11/07/2021 2:[address] 11/07/21 13:18 IMPRESSION: 1. No evidence of intracranial hemorrhage or mass effect. 2. Mild small vessel changes. Mild parenchymal volume loss. 3. No acute intracranial findings. Humerus X-Ray 11/07/21 13:18 IMPRESSION: No acute findings. Hip/Pelvis X-Ray 11/07/21 13:36 IMPRESSION: 1. Metallic left hip arthroplasty in good position. 2. Otherwise No acute findings. Chest X-Ray 11/09/21 06:00 Impression: 1. Negative for active cardiopulmonary disease. 2. No change in right rib fractures. Laboratory Results WBC 6.6 10^3/uL (4.0-10.0) 11/08/21 04:07 RBC 4.13 10^6/uL (4.1-5.3) 11/08/21 04:07 Hgb 12.8 g/dL (11.7-16.6) 11/08/21 04:07 Hct 39.6 % (42.0-52.0) L 11/08/21 04:07 MCV 95.9 fl (80-94) H 11/08/21 04:07 MCH 31.0 pg (28.0-34.0) 11/08/21 04:07 MCHC 32.3 g/dL (30.0-36.0) 11/08/21 04:07 RDW 13.9 % (12.1-15.1) 11/08/21 04:07 Plt Count 159 10^3/cmm (130-400) D 11/08/21 04:07 MPV 10.9 fL (7.4-10.4) H 11/08/21 04:07 Neut % (Auto) 86.3 % 11/08/21 04:07 Lymph % (Auto) 6.2 % 11/08/21 04:07 [place] % (Auto) 6.5 % 11/08/21 04:07 Eos % (Auto) 0.2 % 11/08/21 04:07 Baso % (Auto) 0.3 % 11/08/21 04:07 Neut # (Auto) 5.70 10^3/uL (1.8-7.7) 11/08/21 04:07 Lymph # (Auto) 0.4 10^3/uL (0.8-4.8) L 11/08/21 04:07 [place] # (Auto) 0.4 10^3/uL (0.2-0.9) 11/08/21 04:07 Eos # (Auto) 0.0 10^3/uL (0.0-0.8) 11/08/21 04:07 Baso # (Auto) 0.0 10^3/uL (0.0-0.1) 11/08/21 04:07 Nucleated RBC % (auto) 0 % 11/08/21 04:07 Nucleated RBCs # 0.0 /100WBC 11/08/21 04:07 Sodium 134 mmol/L (136-145) L 11/08/21 04:07 Potassium 4.1 mmol/L (3.5-5.1) 11/08/21 04:07 Chloride 100 mmol/L (98-107) 11/08/21 04:07 Carbon Dioxide 23 mmol/L (22-29) 11/08/21 04:07 Anion Gap 15.1 (5-19) 11/08/21 04:07 BUN 11 mg/dL (8-23) 11/08/21 04:07 Creatinine 0.6 mg/dL (0.7-1.2) L 11/08/21 04:07 GFR Calculation 135.2 mL/min (90-130) H 11/08/21 04:07 Glucose 122 mg/dL (65-115) H 11/08/21 04:07 Calculated Osmolality 279 mOsm/kg (285-295) L 11/08/21 04:07 Calcium 8.0 mg/dL (8.5-10.5) L 11/08/21 04:07 Total Bilirubin 0.7 mg/dL (0.15-1.2) 11/07/21 13:00 AST 30 U/L (0-40) 11/07/21 13:00 ALT 23 U/L (0-41) 11/07/21 13:00 Alkaline Phosphatase 72 IU/L (40-130) 11/07/21 13:00 Total Protein 6.3 g/dL (6.6-8.7) L 11/07/21 13:00 Albumin 4.1 g/dL (3.5-5.2) 11/07/21 13:00 Globulin 2.2 g/dL (1.3-4.6) 11/07/21 13:00 Urine Color Straw (Yellow) 11/07/21 15:00 Urine Appearance Clear (CLEAR) 11/07/21 15:00 Urine pH 9 (5-7) H 11/07/21 15:00 Ur Specific [place] 1.015 (1.005-1.030) 11/07/21 15:00 Urine Protein Neg (Negative) 11/07/21 15:00 Urine Glucose (UA) Norm (Normal) 11/07/21 15:00 Urine Ketones Negative (Negative) 11/07/21 15:00 Urine Blood Neg (Negative) 11/07/21 15:00 Urine Nitrate Negative (Negative) 11/07/21 15:00 Urine Bilirubin Neg (Negative) 11/07/21 15:00 Prot Sulfosalicylic Acd Negative (Negative) 11/07/21 15:00 Urine Urobilinogen Norm mg/dL (Negative) 11/07/21 15:00 Ur Leukocyte Esterase Negative (Negative) 11/07/21 15:00 Urine Opiates Screen Negative ng/mL (Negative) 11/07/21 15:00 Ur Barbiturates Screen Negative ng/mL (Negative) 11/07/21 15:00 Ur Phencyclidine Scrn Negative ng/mL (Negative) 11/07/21 15:00 Ur Amphetamines Screen Negative ng/mL (Negative) 11/07/21 15:00 U Benzodiazepines Scrn Negative ng/mL (Negative) 11/07/21 15:00 Urine Cocaine Screen Negative ng/mL (Negative) 11/07/21 15:00 U Marijuana (THC) Screen Negative ng/mL (Negative) 11/07/21 15:00 Vitals Last Vital Signs Temp 97.7 F 11/10/21 03:00 Pulse 54 L 11/10/21 03:00 Resp 18 11/10/21 03:00 BP 125/76 11/10/21 03:00 Pulse Ox 95 11/10/21 03:00 Discharge Plan Discharge Patient Disposition: Home Condition: Stable Prescriptions: New oxycodone-acetaminophen 5-325 mg Tablet 1 tab PO Q6H PRN (Reason: SEVERE pain) Qty: 20 0RF No Action No Known Home Medications 0RF Discharge Orders: Discharge Order (Routine); Ordered 11/10/21 Ordered By: Vamsi Ardon Referrals: Vamsi Ardon MD [Physician] - 1 week (With chest x-ray) Discharge Diet: Regular Discharge Activity: Limit activity as instructed Patient Instructions: Opioid Safety Activity Restrictions/Additional Instructions: No heavy lifting with right arm for 2 weeks Use incentive spirometer frequently Report any increasing pain, chest wall swelling, or shortness of breath. Discharge Attestations Time Spent in Discharge Care*: less than 30 min Specific Discharge Activities: educating patient, discussing with housing case manager/social workers/dc planners, documenting/other paperwork and evaluating patient/reviewing data Status at Discharge: Cognitive status at discharge: cognitively intact , Behavioral status at discharge: cooperative , Functional status at discharge: uses cane/walker , Overall status at discharge: patient is progressing back to baseline Quality Metrics Clinical Quality Measures [ No reported AMI, CVA or VTE this stay] Coding Level of Care Code Acute Chg FW DC note Diagnoses Multiple rib fractures involving four or more ribs S22.49XA
[2021-11-10 07:00] VITALS: BP 108/70; PULSE 72; RESP 18; TEMP 36.8; O2SAT 93
--- NOTE | 2021-11-10 10:27 | PC.SOCIAL ---
IMM Update Pg. 2 of IMM updated and reviewed with patient, who verbalized understanding. Copy provided.
[2021-11-10 13:09] VITALS: BP 108/70; PULSE 72; RESP 18; TEMP 36.8; O2SAT 93
== END 2021-11-10 13:10 | disposition home or self-care (01) | DRG 185 ==
LOC: ER 15:29 → ICU 17:19 → MEDSURG 11-08 18:01
PROVIDERS: Admitting Provider Thoracic Surgery (Cardiothoracic Vascular Surgery); Emergency Provider Family Medicine; Visit Provider Thoracic Surgery (Cardiothoracic Vascular Surgery)
DX: S22.41XA Multiple fractures of ribs, right side, initial encounter for closed fracture (principal); W20.8XXA Other cause of strike by thrown, projected or falling object, initial encounter; R91.8 Other nonspecific abnormal finding of lung field; Z96.642 Presence of left artificial hip joint; K59.00 Constipation, unspecified
CPT/HCPCS: 01996; 36415; 62324; 70450; 71045; 71260; 72125; 73060; 73502; 74177; 80048; 80053; 80306; 81003; 85025; 93005; 94664; 97116; 97161; 99285; J2795; Q9967

== ENCOUNTER → 2021-11-17 11:33 | Outpatient (BNVA) | payer OTHER, SELFPAY | PROVIDERS: Visit Provider Thoracic Surgery (Cardiothoracic Vascular Surgery) | DX: S22.49XA Multiple fractures of ribs, unspecified side, initial encounter for closed fracture (principal); M25.559 Pain in unspecified hip; R91.8 Other nonspecific abnormal finding of lung field; Z09 Encounter for follow-up examination after completed treatment for conditions other than malignant neoplasm; R91.1 Solitary pulmonary nodule | CPT/HCPCS: 73502; 99213 ==

== ENCOUNTER → 2021-12-27 08:44 | Outpatient (BNVA) | payer OTHER, SELFPAY | PROVIDERS: Visit Provider Internal Medicine Critical Care Medicine | DX: R91.1 Solitary pulmonary nodule (principal) | CPT/HCPCS: 99203; 99204 ==

== ENCOUNTER 2022-01-08 14:33 | Outpatient (CLI) | payer OTHER, SELFPAY ==
--- NOTE | 2022-01-08 14:41 | USCV_ITS ---
Adelso Aidan Age: 66 Gender: M : 1955 Exam Date: 01/08/2022 15:03 Ordering Phys: Akua Shelby Technologist: Chano Mcclure Exam Location: [facility] [place] Indication: aaa HISTORY: Diameter (cm) AP x Transverse x Length Velocity (cm/s) Waveform Prox Aorta: 2.08 x 2.07 x 90.70 Mid Aorta: 2.26 x 2.15 x 67.00 Distal Aorta: 2.34 x 2.48 x 64.80 Right Iliac Prox: 1.21 x 1.32 x 123.40 Left Iliac Prox: 1.39 x 1.53 x 78.80 Stent Prox Landing x x Aneurysmal Sac Max x x Lt Lat Sac Dim Rt Lat Sac Dim Stent Dist [place] x x Right Iliac Stent x x Left Iliac Stent x x Right Renal Art Left Renal Art FINDINGS: no change CONCLUSIONS Ectatic infrarenal abdominal aorta unchanged measuring 2.3 x 2.5cm unchanged Moderate atheromatous disease Normal common iliac arteries with moderate atheromatous disease Lopez Sanchez MD (Electronically Signed) Final Date: 08 Jan 2022 17:34 S
== END 2022-01-08 14:34 | disposition home or self-care (01) ==
PROVIDERS: Visit Provider Nurse Practitioner
DX: I71.4 Abdominal aortic aneurysm, without rupture (principal); I70.8 Atherosclerosis of other arteries
CPT/HCPCS: 93978

== ENCOUNTER → 2022-02-26 08:25 | Outpatient (BNVA) | payer OTHER, SELFPAY | PROVIDERS: Visit Provider Internal Medicine Critical Care Medicine | DX: R91.1 Solitary pulmonary nodule (principal) | CPT/HCPCS: 99214 ==